=== PATIENT | female | born 1970 | race Caucasian/White ===

== ENCOUNTER → 2024-06-11 | Day surgery (SDC) | payer BC ==
[~2024-06-11] VITALS: Ht 157.5 cm; Wt 82.4 kg
[~2024-06-11] MED LIST: ADIPEX-P37.5 M2 PO; CRESTOR 10MG10 MG PO; GENTAMICIN EYE D5 ML OS; LR 1,000 ML IV SCH; Labetalol 100 MG/20 ML Multi-Dose VIAL ONE; Lidocaine PF 2% (20 MG/ML) 5 ML VIAL ONE; NURTEC ODT75 MG PO; Ondansetron 4 MG/2 ML VIAL IV PRN; PRILOSEC 20MG20 MG PO; PRINIVIL20 MG PO; RELPAX 40MG TAB40 MG PO; SINGULAIR 110 MG/TAB PO; TOPAMAX 25MG25 M1 PO; WELLBUTRIN XL300 M1 PO; fentaNYL 50 MCG/ML 2 ML VIAL ONE
[2024-06-11 10:00] VITALS: BP 127/79; PULSE 57; TEMP 97.2
[2024-06-11 11:05] VITALS: BP 118/72; PULSE 54
--- NOTE | 2024-06-11 11:05 | NUR ---
1105 PT ARRIVES TO BAY 3 VIA CART. ASSISTED BY TWO STAFF TO RECLINER. REPORTS THROAT IS SCRATCHY BUT NO PAIN OR GAS. 1112 PT IS GIVEN SNACK OF JUICE AND PUDDING. 1135 IV DC'D INTAACT. DC INSTRUCTIONS WENT OVER WITH PT AND FAMILY. ALL QUESTION INVITED AND ANSWERED. 1141 IN TO SEE PT. 1150 PT TAKEN TO [facility] IN WHEELCHAIR, BROTHER HERE TO PICK HER UP
[2024-06-11 11:15] VITALS: BP 117/97; PULSE 47
[2024-06-11 11:24] VITALS: BP 118/72; PULSE 54
== END ==
LOC: SDCO 07:45
DX: Z12.11 Encounter for screening for malignant neoplasm of colon (principal); K22.2 Esophageal obstruction; K62.89 Other specified diseases of anus and rectum; K21.00 Gastro-esophageal reflux disease with esophagitis, without bleeding; Z86.010 Personal history of colon polyps; Z79.899 Other long term (current) drug therapy
CPT/HCPCS: C1726; J1920; J2704; J3010; J7120